=== PATIENT | female | born 1955 | race Caucasian/White ===

== ENCOUNTER 2018-02-20 15:15 | Inpatient (IN) ==
[~2018-02-20 15:15] MED LIST: HEPARIN/NACL 0.9% 2 UNITS/ML 1,000 ML IV ONE; HEPARIN/NACL 0.9% 2 UNITS/ML 500 ML IV ONE; LIDOCAINE 1% 20 ML VIAL ONE; MIDAZOLAM 2 MG/2 ML VIAL ONE; NITROGLYCERIN DRIP 50 MG/250 ML BOTTLE IV ONE; VERAPAMIL 5 MG/2 ML VIAL ONE; fentaNYL 100 MCG/2 ML VIAL ONE
[2018-02-20] MEDS ORDERED: MIDAZOLAM 2 MG/2 ML VIAL ONE ×3 (15:29→15:34)
[2018-02-20] MEDS ORDERED: diphenhydrAMINE 50 MG/1 ML VIAL ONE ×2 (15:33)
[2018-02-20] MEDS ORDERED: TICAGRELOR 90 MG TABLET ONE (15:51)
[2018-02-20] MEDS ORDERED: HEPARIN 5,000 UNIT/1 ML VIAL ONE (15:51)
[2018-02-20] MEDS ORDERED: ONDANSETRON 4 MG/2 ML VIAL IV PRN (15:57)
[2018-02-20] MEDS ORDERED: NITROGLYCERIN SL 0.4 MG TABLET SL PRN (15:57)
[2018-02-20] MEDS ORDERED: ZALEPLON 5 MG CAPSULE PO PRN (15:57)
[2018-02-20] MEDS ORDERED: ACETAMINOPHEN 325 MG TABLET PO PRN (15:57)
[2018-02-20] MEDS ORDERED: SODIUM CHLORIDE 0.45% 1,000 ML IV SCH (16:00)
[2018-02-20] MEDS ORDERED: PANTOPRAZOLE 40 MG TABLET PO SCH (16:00)
[2018-02-20] MEDS: NICOTINE 21 MG/24 HR PATCH TRANSDERM SCH (17:13)
[2018-02-20 18:04] LABS: Basophils # 0.1 10*3/uL (0.0-0.2); Basophils % 0.4 % (0.0-0.8); Eosinophils # 0.2 10*3/uL (0.0-0.87); Eosinophils % 1.3 % (0.00-10.9); Hematocrit 42.3 VOL% (35.7-47.0); Hemoglobin 14.6 GM/DL (12.0-16.0); Immature Granulocytes % 0.5 %; Immature Granulocytes Absolute 0.07 #; Lymphocytes # 2.7 10*3/uL (1.4-4.0); Lymphocytes % 20.2 % (21.3-54.2); Mean Corpuscular HGB Conc 34.5 GM/DL (32-36); Mean Corpuscular Hemoglobin 31 PG (27-34); Mean Platelet Volume 10.4 FL (9.6-12.0); Monocytes # 1.2 10*3/uL (0.11-0.8); Monocytes % 8.9 % (1.7-12.7); Neutrophils # 9.2 10*3/uL (1.4-7.4); Neutrophils % 68.7 % (38.7-73.9); Platelet Count 202 T/CUMM (130-400); Red Blood Count 4.65 MC/CUMM (3.8-5.5); Red Cell Distribution Width 13.9 % (9.3-17.3); White Blood Count 13.4 T/CUMM (4-12)
[2018-02-20] MEDS ORDERED: ALUM/MAG/SIMETH/LIDO VISC 1:1 30 ML BOTTLE PO ONE (18:17)
[2018-02-20 18:28] LABS: Calcium 8.7 MG/DL (8.5-10.1); Osmolality,Calculated 271.1 MOS/KG (273-304); Potassium 3.8 MMOL/L (3.5-5.1)
[2018-02-20] MEDS: ATORVASTATIN 40 MG TABLET PO SCH (20:49)
[2018-02-20] MEDS: LORazepam 1 MG TABLET PO PRN (20:50)
[2018-02-20] MEDS: TICAGRELOR 90 MG TABLET PO SCH (20:50)
[2018-02-20] MEDS: CARVEDILOL 3.125 MG TABLET PO SCH (20:50)
[2018-02-21 05:43] LABS: Basophils % 0.3 % (0.0-0.8); Eosinophils # 0.2 10*3/uL (0.0-0.87); Eosinophils % 1.7 % (0.00-10.9); Hematocrit 44.1 VOL% (35.7-47.0); Hemoglobin 14.9 GM/DL (12.0-16.0); Immature Granulocytes % 0.4 %; Immature Granulocytes Absolute 0.04 #; Lymphocytes # 1.9 10*3/uL (1.4-4.0); Lymphocytes % 17.8 % (21.3-54.2); Mean Corpuscular HGB Conc 33.8 GM/DL (32-36); Mean Corpuscular Hemoglobin 31 PG (27-34); Mean Corpuscular Volume 91.5 FL (87-102); Mean Platelet Volume 10.8 FL (9.6-12.0); Monocytes # 0.9 10*3/uL (0.11-0.8); Monocytes % 8.3 % (1.7-12.7); Neutrophils # 7.8 10*3/uL (1.4-7.4); Neutrophils % 71.5 % (38.7-73.9); Platelet Count 208 T/CUMM (130-400); Red Blood Count 4.82 MC/CUMM (3.8-5.5); Red Cell Distribution Width 13.9 % (9.3-17.3); White Blood Count 10.9 T/CUMM (4-12)
[2018-02-21 06:11] LABS: Calcium 8.4 MG/DL (8.5-10.1); Osmolality,Calculated 277.7 MOS/KG (273-304); Potassium 4.1 MMOL/L (3.5-5.1); Risk Ratio 4.91; VLDL CHOLESTEROL 40.6 MG/DL
[2018-02-21] MEDS: LISINOPRIL 2.5 MG TABLET PO SCH (09:45)
[2018-02-21] MEDS: CARVEDILOL 3.125 MG TABLET PO SCH ×2 (09:45→20:58)
[2018-02-21] MEDS: NICOTINE 21 MG/24 HR PATCH TRANSDERM SCH (09:46)
[2018-02-21] MEDS: TICAGRELOR 90 MG TABLET PO SCH ×2 (09:46→20:58)
[2018-02-21] MEDS: ASPIRIN EC 81 MG TABLET PO SCH (09:46)
[2018-02-21] MEDS: PANTOPRAZOLE 40 MG TABLET PO SCH ×2 (09:46→21:02)
[2018-02-21] MEDS: LORazepam 1 MG TABLET PO PRN (09:51)
[2018-02-21] MEDS ORDERED: ALUM/MAG/SIMETH/LIDO VISC 1:1 30 ML BOTTLE PO ONE (10:29)
[2018-02-21] MEDS: FAMOTIDINE 20 MG TABLET PO SCH ×2 (10:52→20:59)
[2018-02-21] MEDS: ATORVASTATIN 40 MG TABLET PO SCH (20:58)
[2018-02-22 04:26] LABS: Basophils # 0.1 10*3/uL (0.0-0.2); Basophils % 0.5 % (0.0-0.8); Eosinophils # 0.3 10*3/uL (0.0-0.87); Eosinophils % 3.2 % (0.00-10.9); Hemoglobin 14.6 GM/DL (12.0-16.0); Immature Granulocytes % 0.4 %; Immature Granulocytes Absolute 0.04 #; Lymphocytes % 31.1 % (21.3-54.2); Mean Corpuscular HGB Conc 34.8 GM/DL (32-36); Mean Corpuscular Hemoglobin 32 PG (27-34); Mean Corpuscular Volume 91.7 FL (87-102); Mean Platelet Volume 10.9 FL (9.6-12.0); Monocytes # 0.8 10*3/uL (0.11-0.8); Monocytes % 7.7 % (1.7-12.7); Neutrophils # 5.6 10*3/uL (1.4-7.4); Neutrophils % 57.1 % (38.7-73.9); Platelet Count 223 T/CUMM (130-400); Red Blood Count 4.58 MC/CUMM (3.8-5.5); Red Cell Distribution Width 13.9 % (9.3-17.3); White Blood Count 9.7 T/CUMM (4-12)
[2018-02-22 05:05] LABS: Calcium 8.9 MG/DL (8.5-10.1); Osmolality,Calculated 283.3 MOS/KG (273-304); Potassium 4.8 MMOL/L (3.5-5.1)
[2018-02-22 05:07] LABS: Calcium 9.1 MG/DL (8.5-10.1); Osmolality,Calculated 281.4 MOS/KG (273-304); Potassium 4.8 MMOL/L (3.5-5.1)
[2018-02-22] MEDS: LISINOPRIL 2.5 MG TABLET PO SCH (09:19)
[2018-02-22] MEDS: TICAGRELOR 90 MG TABLET PO SCH ×2 (09:19→21:54)
[2018-02-22] MEDS: FAMOTIDINE 20 MG TABLET PO SCH ×2 (09:19→21:52)
[2018-02-22] MEDS: ASPIRIN EC 81 MG TABLET PO SCH (09:19)
[2018-02-22] MEDS: PANTOPRAZOLE 40 MG TABLET PO SCH ×2 (09:19→21:54)
[2018-02-22] MEDS: CARVEDILOL 3.125 MG TABLET PO SCH (09:19)
[2018-02-22] MEDS: NICOTINE 21 MG/24 HR PATCH TRANSDERM SCH (09:19)
[2018-02-22] MEDS: RANOLAZINE 500 MG TABLET PO SCH (21:52)
[2018-02-22] MEDS: ATORVASTATIN 40 MG TABLET PO SCH (21:53)
[2018-02-22] MEDS: CARVEDILOL 6.25 MG TABLET PO SCH (21:53)
[2018-02-22] MEDS: LORazepam 1 MG TABLET PO PRN (21:54)
[2018-02-23 05:47] LABS: Basophils % 0.4 % (0.0-0.8); Eosinophils # 0.4 10*3/uL (0.0-0.87); Eosinophils % 3.9 % (0.00-10.9); Hemoglobin 13.4 GM/DL (12.0-16.0); Immature Granulocytes % 0.5 %; Immature Granulocytes Absolute 0.06 #; Lymphocytes # 3.1 10*3/uL (1.4-4.0); Lymphocytes % 27.2 % (21.3-54.2); Mean Corpuscular HGB Conc 34.4 GM/DL (32-36); Mean Corpuscular Hemoglobin 32 PG (27-34); Mean Corpuscular Volume 91.8 FL (87-102); Mean Platelet Volume 10.2 FL (9.6-12.0); Neutrophils # 6.7 10*3/uL (1.4-7.4); Platelet Count 229 T/CUMM (130-400); Red Blood Count 4.25 MC/CUMM (3.8-5.5); Red Cell Distribution Width 13.7 % (9.3-17.3); White Blood Count 11.3 T/CUMM (4-12)
[2018-02-23 06:04] LABS: Calcium 8.9 MG/DL (8.5-10.1); Osmolality,Calculated 279.5 MOS/KG (273-304); Potassium 4.3 MMOL/L (3.5-5.1)
[2018-02-23] MEDS: LISINOPRIL 2.5 MG TABLET PO SCH (09:57)
[2018-02-23] MEDS: NICOTINE 21 MG/24 HR PATCH TRANSDERM SCH (09:57)
[2018-02-23] MEDS: RANOLAZINE 500 MG TABLET PO SCH (09:58)
[2018-02-23] MEDS: FAMOTIDINE 20 MG TABLET PO SCH (09:58)
[2018-02-23] MEDS: ASPIRIN EC 81 MG TABLET PO SCH (09:58)
[2018-02-23] MEDS: TICAGRELOR 90 MG TABLET PO SCH (09:58)
[2018-02-23] MEDS: CARVEDILOL 6.25 MG TABLET PO SCH (09:58)
[2018-02-23] MEDS: PANTOPRAZOLE 40 MG TABLET PO SCH (09:58)
[2018-02-23 11:44] VITALS: BP 131/79
== END 2018-02-23 13:40 | disposition home or self-care (01) | DRG 251 ==
LOC: N.CL 15:15 → EDSTATUS 15:30 → N.CC 15:57 → N.TELES 02-21 15:49
PROVIDERS: ADMIT Internal Medicine Cardiovascular Disease; ATTEND Internal Medicine Cardiovascular Disease
PROC: CLCCHCL (ICD-10-PCS; 2018-02-20 15:45)

== ENCOUNTER 2018-10-25 04:08 | Inpatient (IN) ==
[2018-10-25] MEDS ORDERED: ROCURONIUM 100 MG/10 ML VIAL IV STA (04:26)
[2018-10-25] MEDS ORDERED: ETOMIDATE 20 MG/10 ML VIAL IV STA (04:26)
[2018-10-25] MEDS ORDERED: FUROSEMIDE 40 MG/4 ML VIAL IV STA (04:46)
[2018-10-25] MEDS ORDERED: hydrALAZINE 20 MG/1 ML VIAL IV STA (04:47)
[2018-10-25] MEDS ORDERED: PROPOFOL 1,000 MG/100 ML BOTTLE IV ONE (04:50)
[2018-10-25] MEDS ORDERED: LABETALOL 20 MG/4 ML SYRINGE IV STA (05:06)
[2018-10-25] MEDS ORDERED: ADENOSINE 6 MG/2 ML VIAL IV STA (05:09)
[2018-10-25] MEDS ORDERED: LABETALOL 20 MG/4 ML SYRINGE IV ONE (05:10)
[2018-10-25] MEDS ORDERED: hydrALAZINE 20 MG/1 ML VIAL ONE (05:10)
[2018-10-25] MEDS ORDERED: FUROSEMIDE 40 MG/4 ML VIAL ONE (05:11)
[2018-10-25] MEDS ORDERED: ADENOSINE 6 MG/2 ML VIAL ONE (05:15)
[2018-10-25] MEDS: PROPOFOL 1,000 MG/100 ML BOTTLE IV SCH ×3 (05:17→23:40)
[2018-10-25 05:22] LABS: Basophils # 0.1 10*3/uL (0.0-0.2); Basophils % 0.6 % (0.0-0.8); Eosinophils # 0.3 10*3/uL (0.0-0.87); Eosinophils % 1.3 % (0.00-10.9); Hematocrit 46.1 VOL% (35.7-47.0); Hemoglobin 14.4 GM/DL (12.0-16.0); Immature Granulocytes % 1.2 %; Immature Granulocytes Absolute 0.24 #; Lymphocytes # 3.2 10*3/uL (1.4-4.0); Lymphocytes % 15.6 % (21.3-54.2); Mean Corpuscular HGB Conc 31.2 GM/DL (32-36); Mean Corpuscular Hemoglobin 31 PG (27-34); Mean Corpuscular Volume 100.4 FL (87-102); Mean Platelet Volume 10.9 FL (9.6-12.0); Monocytes # 0.4 10*3/uL (0.11-0.8); Monocytes % 2.1 % (1.7-12.7); Neutrophils # 16.2 10*3/uL (1.4-7.4); Neutrophils % 79.2 % (38.7-73.9); Platelet Count 319 T/CUMM (130-400); Red Blood Count 4.59 MC/CUMM (3.8-5.5); Red Cell Distribution Width 13.5 % (9.3-17.3); White Blood Count 20.4 T/CUMM (4-12)
[2018-10-25] MEDS ORDERED: ETOMIDATE 20 MG/10 ML VIAL IV ONE (05:30)
[2018-10-25] MEDS ORDERED: ROCURONIUM 100 MG/10 ML VIAL IV ONE (05:31)
[2018-10-25] MEDS ORDERED: VECURONIUM 10 MG VIAL IV ONE (05:31)
[2018-10-25 05:39] LABS: Albumin 3.4 G/DL (3.4-5.0); Bilirubin,Total 0.9 MG/DL (0.2-1.0); Calcium 8.5 MG/DL (8.5-10.1); Osmolality,Calculated 299.1 MOS/KG (273-304); Potassium 5.6 MMOL/L (3.5-5.1); Total Protein 6.7 G/DL (6.4-8.3)
[2018-10-25 05:44] LABS: Anisocytosis Slight; Macrocytosis Slight; Platelet Estimate Normal
[2018-10-25 05:45] LABS: ABG Base Excess -12.1 MMOL/L (-2.5-2.5); ABG HCO3 14.9 MMOL/L (20-26); ABG Oxygen Saturation 81.8 % (95-100); ABG PCO2 53.7 MM HG (35-48); ABG PO2 63.3 MM HG (80-95); ABG TCO2 16.5 MMOL/L (23-27); Pt O2 Delivery Device Ventilator
[2018-10-25 05:49] LABS: ABG PH 7.135 (7.35-7.45)
[2018-10-25] MEDS ORDERED: MAGNESIUM SULF RIDER 2 GM in PREMIX 1 EACH IV PRN (06:15)
[2018-10-25] MEDS ORDERED: ONDANSETRON 4 MG/2 ML VIAL IV PRN (06:15)
[2018-10-25] MEDS ORDERED: ALBUTEROL 2.5 MG/3 ML NEB RESP TX PRN (06:15)
[2018-10-25] MEDS ORDERED: POTASSIUM CHLORIDE RIDER 10 MEQ in PREMIX 1 EACH IV PRN (06:15)
[2018-10-25] MEDS ORDERED: MAGNESIUM SULF RIDER 4 GM in PREMIX 1 EACH IV PRN (06:15)
[2018-10-25] MEDS ORDERED: DEXTROSE 50% 25 GM/50 ML SYRINGE IV PRN (06:26)
[2018-10-25] MEDS ORDERED: GLUCAGON 1 MG VIAL IM PRN (06:26)
[2018-10-25] MEDS ORDERED: ENOXAPARIN 40 MG/0.4 ML SYRINGE SUBCUT SCH (06:30)
[2018-10-25 08:49] LABS: Albumin 3.6 G/DL (3.4-5.0); Bilirubin,Total 0.6 MG/DL (0.2-1.0); Calcium 8.5 MG/DL (8.5-10.1); Osmolality,Calculated 284.3 MOS/KG (273-304); Total Protein 7.3 G/DL (6.4-8.3)
[2018-10-25 09:10] LABS: ABG Base Excess -8.9 MMOL/L (-2.5-2.5); ABG PCO2 48.5 MM HG (35-48); ABG PH 7.212 (7.35-7.45); ABG PO2 97.7 MM HG (80-95); ABG TCO2 20.5 MMOL/L (23-27)
[2018-10-25] MEDS ORDERED: SODIUM CHLORIDE 0.9% 1,000 ML IV ONE (09:25)
[2018-10-25] MEDS: PANTOPRAZOLE 40 MG VIAL IV SCH (09:48)
[2018-10-25] MEDS: SODIUM CHLORIDE 0.9% 1,000 ML IV SCH ×2 (09:52→18:48)
[2018-10-25] MEDS ORDERED: ISOSORBIDE MONONITRATE 30 MG TABLET PO SCH (10:30)
[2018-10-25] MEDS: CARVEDILOL 6.25 MG TABLET PO SCH ×2 (11:00→21:02)
[2018-10-25] MEDS: methylPREDNISolone SOD SUC 40 MG/1 ML VIAL IV SCH ×2 (11:00→18:59)
[2018-10-25] MEDS: ASPIRIN 325 MG TABLET PO SCH (11:00)
[2018-10-25] MEDS: PIPERACILLIN/TAZOBACTAM 3,375 MG in SODIUM CHLORIDE 0.9% 100 ML IV SCH ×2 (11:00→19:00)
[2018-10-25 12:49] LABS: Calcium 7.8 MG/DL (8.5-10.1); Osmolality,Calculated 285.3 MOS/KG (273-304)
[2018-10-25 12:51] LABS: Potassium 6.6 MMOL/L (3.5-5.1)
[2018-10-25] MEDS ORDERED: SODIUM POLYSTYRENE SULFATE 15 GM/60 ML BOTTLE PO ONE (13:30)
[2018-10-25] MEDS ORDERED: hydrALAZINE 25 MG TABLET PO SCH (15:00)
[2018-10-25] MEDS ORDERED: ENOXAPARIN 40 MG/0.4 ML SYRINGE SUBCUT ONE (16:22)
[2018-10-25] MEDS: INSULIN REGULAR 100 UNIT/ML SUBCUT SCH ×3 (17:36→20:48)
[2018-10-25] MEDS: FUROSEMIDE 40 MG/4 ML VIAL IV SCH (18:47)
[2018-10-25 20:06] LABS: Calcium 7.7 MG/DL (8.5-10.1); Potassium 4.4 MMOL/L (3.5-5.1)
[2018-10-25] MEDS ORDERED: MORPHINE 4 MG/1 ML VIAL IV PRN (21:14)
[2018-10-25] MEDS: MORPHINE 4 MG/1 ML VIAL IV PRN (21:16)
[2018-10-25] MEDS ORDERED: PHENYLEPHRINE DRIP 40 MG/250 ML PREMIX IV PRN (22:05)
[2018-10-26] MEDS: INSULIN REGULAR 100 UNIT/ML SUBCUT SCH ×6 (00:24→19:48)
[2018-10-26] MEDS: PIPERACILLIN/TAZOBACTAM 3,375 MG in SODIUM CHLORIDE 0.9% 100 ML IV SCH ×3 (02:34→17:52)
[2018-10-26] MEDS: methylPREDNISolone SOD SUC 40 MG/1 ML VIAL IV SCH ×3 (02:34→17:52)
[2018-10-26 02:45] LABS: ABG Base Excess -5.7 MMOL/L (-2.5-2.5); ABG HCO3 19.8 MMOL/L (20-26); ABG Oxygen Saturation 99.1 % (95-100); ABG PCO2 31.2 MM HG (35-48); ABG PH 7.378 (7.35-7.45); Allen Test Positive; Pt O2 Delivery Device Ventilator
[2018-10-26 04:04] LABS: Basophils % 0.2 % (0.0-0.8); Hematocrit 39.7 VOL% (35.7-47.0); Hemoglobin 12.7 GM/DL (12.0-16.0); Immature Granulocytes % 0.7 %; Immature Granulocytes Absolute 0.15 #; Lymphocytes # 1.5 10*3/uL (1.4-4.0); Lymphocytes % 7.5 % (21.3-54.2); Mean Corpuscular Hemoglobin 31 PG (27-34); Mean Corpuscular Volume 96.1 FL (87-102); Mean Platelet Volume 11.1 FL (9.6-12.0); Monocytes # 0.7 10*3/uL (0.11-0.8); Monocytes % 3.6 % (1.7-12.7); Neutrophils # 18.1 10*3/uL (1.4-7.4); Platelet Count 188 T/CUMM (130-400); Red Blood Count 4.13 MC/CUMM (3.8-5.5); Red Cell Distribution Width 13.8 % (9.3-17.3); White Blood Count 20.6 T/CUMM (4-12)
[2018-10-26] MEDS: SODIUM CHLORIDE 0.9% 1,000 ML IV SCH ×4 (04:18→14:15)
[2018-10-26 04:31] LABS: Calcium 7.9 MG/DL (8.5-10.1); Osmolality,Calculated 296.7 MOS/KG (273-304); Potassium 3.8 MMOL/L (3.5-5.1)
[2018-10-26 04:33] LABS: Lymphocytes 7 % (20-55); Platelet Estimate Adequate; Segmented Neutrophils 89 % (50-85); Total Cells Counted 100
[2018-10-26] MEDS: ENOXAPARIN 80 MG/0.8 ML SYRINGE SUBCUT SCH (04:33)
[2018-10-26 04:34] LABS: Hypochromasia 1+
[2018-10-26] MEDS: PROPOFOL 1,000 MG/100 ML BOTTLE IV SCH ×2 (05:10→05:24)
[2018-10-26] MEDS: PANTOPRAZOLE 40 MG VIAL IV SCH (05:54)
[2018-10-26] MEDS: FUROSEMIDE 40 MG/4 ML VIAL IV SCH ×2 (09:19→17:52)
[2018-10-26] MEDS: ASPIRIN 325 MG TABLET PO SCH (09:20)
[2018-10-26] MEDS: CARVEDILOL 6.25 MG TABLET PO SCH ×2 (09:20→20:47)
[2018-10-26 10:55] LABS: ABG Base Excess -5.3 MMOL/L (-2.5-2.5); ABG Oxygen Saturation 96.3 % (95-100); ABG PCO2 31.6 MM HG (35-48); ABG PH 7.382 (7.35-7.45); ABG PO2 86.9 MM HG (80-95); ABG TCO2 16.5 MMOL/L (23-27); Pt O2 Delivery Device Ventilator
[2018-10-26] MEDS: MORPHINE 4 MG/1 ML VIAL IV PRN (18:00)
[2018-10-26] MEDS: RANOLAZINE 500 MG TABLET PO SCH (20:47)
[2018-10-26] MEDS: ATORVASTATIN 40 MG TABLET PO SCH (20:47)
[2018-10-26] MEDS: TICAGRELOR 90 MG TABLET PO SCH (20:47)
[2018-10-27] MEDS: INSULIN REGULAR 100 UNIT/ML SUBCUT SCH ×6 (00:03→22:31)
[2018-10-27] MEDS: methylPREDNISolone SOD SUC 40 MG/1 ML VIAL IV SCH (03:12)
[2018-10-27] MEDS: PIPERACILLIN/TAZOBACTAM 3,375 MG in SODIUM CHLORIDE 0.9% 100 ML IV SCH ×3 (03:12→18:28)
[2018-10-27] MEDS: MORPHINE 4 MG/1 ML VIAL IV PRN (05:02)
[2018-10-27] MEDS: PROPOFOL 1,000 MG/100 ML BOTTLE IV SCH (05:03)
[2018-10-27] MEDS: ENOXAPARIN 80 MG/0.8 ML SYRINGE SUBCUT SCH (05:03)
[2018-10-27] MEDS: PANTOPRAZOLE 40 MG VIAL IV SCH (05:49)
[2018-10-27 06:03] LABS: Basophils % 0.1 % (0.0-0.8); Hematocrit 32.9 VOL% (35.7-47.0); Hemoglobin 10.9 GM/DL (12.0-16.0); Immature Granulocytes % 1.8 %; Immature Granulocytes Absolute 0.35 #; Lymphocytes # 1.3 10*3/uL (1.4-4.0); Lymphocytes % 6.5 % (21.3-54.2); Mean Corpuscular HGB Conc 33.1 GM/DL (32-36); Mean Corpuscular Hemoglobin 32 PG (27-34); Mean Corpuscular Volume 95.1 FL (87-102); Mean Platelet Volume 11.6 FL (9.6-12.0); Monocytes # 0.6 10*3/uL (0.11-0.8); Monocytes % 3.2 % (1.7-12.7); Neutrophils # 17.5 10*3/uL (1.4-7.4); Neutrophils % 88.4 % (38.7-73.9); Platelet Count 171 T/CUMM (130-400); Red Blood Count 3.46 MC/CUMM (3.8-5.5); Red Cell Distribution Width 13.9 % (9.3-17.3); White Blood Count 19.8 T/CUMM (4-12)
[2018-10-27 06:16] LABS: Calcium 7.5 MG/DL (8.5-10.1); Osmolality,Calculated 291.3 MOS/KG (273-304); Potassium 3.2 MMOL/L (3.5-5.1)
[2018-10-27] MEDS ORDERED: POTASSIUM CHLORIDE 20 MEQ TABLET PO ONE (08:46)
[2018-10-27] MEDS: RANOLAZINE 500 MG TABLET PO SCH ×2 (09:11→21:14)
[2018-10-27] MEDS: CARVEDILOL 6.25 MG TABLET PO SCH ×2 (09:11→21:15)
[2018-10-27] MEDS: TICAGRELOR 90 MG TABLET PO SCH ×2 (09:11→21:15)
[2018-10-27] MEDS: ASPIRIN 325 MG TABLET PO SCH (09:11)
[2018-10-27] MEDS: FUROSEMIDE 40 MG/4 ML VIAL IV SCH ×2 (09:11→16:28)
[2018-10-27] MEDS: ACETAMINOPHEN 325 MG TABLET PO PRN ×2 (09:53→18:09)
[2018-10-27] MEDS ORDERED: methylPREDNISolone SOD SUC 40 MG/1 ML VIAL IV SCH (15:00)
[2018-10-27] MEDS: ATORVASTATIN 40 MG TABLET PO SCH (21:15)
[2018-10-27] MEDS ORDERED: MAGNESIUM HYDROXIDE SUSP 30 ML UDCUP PO PRN (22:13)
[2018-10-28] MEDS: INSULIN REGULAR 100 UNIT/ML SUBCUT SCH ×5 (02:30→17:22)
[2018-10-28] MEDS: PIPERACILLIN/TAZOBACTAM 3,375 MG in SODIUM CHLORIDE 0.9% 100 ML IV SCH ×3 (02:42→18:31)
[2018-10-28 04:17] LABS: Basophils % 0.1 % (0.0-0.8); Eosinophils % 0.1 % (0.00-10.9); Hematocrit 35.1 VOL% (35.7-47.0); Hemoglobin 11.6 GM/DL (12.0-16.0); Immature Granulocytes % 0.7 %; Immature Granulocytes Absolute 0.13 #; Lymphocytes # 2.9 10*3/uL (1.4-4.0); Lymphocytes % 16.5 % (21.3-54.2); Mean Corpuscular Hemoglobin 31 PG (27-34); Mean Corpuscular Volume 94.1 FL (87-102); Mean Platelet Volume 11.3 FL (9.6-12.0); Monocytes # 0.9 10*3/uL (0.11-0.8); Monocytes % 5.1 % (1.7-12.7); Neutrophils # 13.7 10*3/uL (1.4-7.4); Neutrophils % 77.5 % (38.7-73.9); Platelet Count 192 T/CUMM (130-400); Red Blood Count 3.73 MC/CUMM (3.8-5.5); Red Cell Distribution Width 13.6 % (9.3-17.3); White Blood Count 17.7 T/CUMM (4-12)
[2018-10-28 04:33] LABS: Calcium 7.7 MG/DL (8.5-10.1); Osmolality,Calculated 286.4 MOS/KG (273-304); Potassium 3.3 MMOL/L (3.5-5.1)
[2018-10-28 04:34] LABS: Calcium 7.9 MG/DL (8.5-10.1); Osmolality,Calculated 283.5 MOS/KG (273-304); Potassium 3.2 MMOL/L (3.5-5.1)
[2018-10-28] MEDS: ASPIRIN 325 MG TABLET PO SCH (08:53)
[2018-10-28] MEDS: RANOLAZINE 500 MG TABLET PO SCH (08:53)
[2018-10-28] MEDS: CARVEDILOL 6.25 MG TABLET PO SCH (08:53)
[2018-10-28] MEDS: TICAGRELOR 90 MG TABLET PO SCH (08:53)
[2018-10-28] MEDS: FUROSEMIDE 40 MG/4 ML VIAL IV SCH ×2 (08:54→17:23)
[2018-10-28] MEDS ORDERED: POTASSIUM CHLORIDE 20 MEQ TABLET PO SCH (09:00)
[2018-10-28] MEDS ORDERED: PANTOPRAZOLE 40 MG TABLET PO SCH (09:00)
[2018-10-28] MEDS: ENOXAPARIN 80 MG/0.8 ML SYRINGE SUBCUT SCH (11:06)
[2018-10-28 11:31] LABS: Apearance,Urine CLEAR (Clear); Bilirubin,Urine Negative (Negative); Blood, Urine Large mg/dL (Negative); Glucose,Urine (UA) Negative (Negative); Ketones,Urine Negative (Negative); Mucus,Urine Occasional /LPF (Occasional); Nitrite,Urine Negative (Negative); Protein,Urine Negative; RBC,Urine 20 /HPF (0-4); Urine Color Straw (Yellow); Urine Specific Gravity 1.005 (1.001-1.035); Urine Urobilinogen < 2.0 EU/DL (0.2-1.0); WBC,Urine 3 /HPF (0-6)
[2018-10-28 18:25] VITALS: BP 115/72
== END 2018-10-28 18:40 | disposition home or self-care (01) | DRG 208 ==
LOC: EDBD → EDUNIT# → N.ED 04:08 → SUATTDRO 06:15 → N.EDINP 06:15 → N.ICU 06:45 → N.2E 10-27 17:25
PROVIDERS: ADMIT Internal Medicine; ATTEND Internal Medicine

== ENCOUNTER 2020-09-25 16:47 | Inpatient (IN) ==
[2020-09-25 20:10] LABS: Basophils # 0.1 10*3/uL (0.0-0.2); Basophils % 0.4 % (0.0-0.8); Eosinophils # 0.2 10*3/uL (0.0-0.87); Eosinophils % 1.5 % (0.00-10.9); Hematocrit 40.4 VOL% (35.7-47.0); Hemoglobin 13.8 GM/DL (12.0-16.0); Immature Granulocytes Absolute 0.12 #; Lymphocytes # 1.4 10*3/uL (1.4-4.0); Lymphocytes % 11.6 % (21.3-54.2); Mean Corpuscular HGB Conc 34.2 GM/DL (32-36); Mean Corpuscular Volume 97.8 FL (87-102); Mean Platelet Volume 9.7 FL (9.6-12.0); Monocytes % 8.6 % (1.7-12.7); Neutrophils % 76.9 % (38.7-73.9); Platelet Count 307 T/CUMM (130-400); Red Blood Count 4.13 MC/CUMM (3.8-5.5); Red Cell Distribution Width 14.6 % (9.3-17.3); White Blood Count 12.2 T/CUMM (4-12)
[2020-09-25 20:35] LABS: Albumin 2.9 G/DL (3.4-5.0); Calcium 8.6 MG/DL (8.5-10.1); Potassium 4.4 MMOL/L (3.5-5.1); Total Protein 6.8 G/DL (6.4-8.3)
[2020-09-25] MEDS ORDERED: DEXTROSE 50% 25 GM/50 ML VIAL IV PRN (23:50)
[2020-09-25] MEDS ORDERED: hydrALAZINE 20 MG/1 ML VIAL IV PRN (23:50)
[2020-09-25] MEDS ORDERED: ONDANSETRON 4 MG/2 ML VIAL IV PRN (23:50)
[2020-09-25] MEDS ORDERED: ALBUTEROL/IPRATROPIUM 3 ML NEB RESP TX PRN (23:50)
[2020-09-25] MEDS ORDERED: GLUCAGON 1 MG VIAL IM PRN (23:50)
[2020-09-25] MEDS ORDERED: DOCUSATE SODIUM 100 MG CAPSULE PO PRN (23:50)
[2020-09-26] MEDS: ALPRAZolam 0.25 MG TABLET PO PRN ×2 (00:39→22:30)
[2020-09-26 05:47] LABS: Basophils # 0.1 10*3/uL (0.0-0.2); Basophils % 0.5 % (0.0-0.8); Eosinophils # 0.2 10*3/uL (0.0-0.87); Eosinophils % 1.2 % (0.00-10.9); Hematocrit 41.4 VOL% (35.7-47.0); Hemoglobin 13.7 GM/DL (12.0-16.0); Immature Granulocytes Absolute 0.12 #; Lymphocytes # 1.9 10*3/uL (1.4-4.0); Lymphocytes % 15.5 % (21.3-54.2); Mean Corpuscular HGB Conc 33.1 GM/DL (32-36); Mean Corpuscular Volume 99.3 FL (87-102); Mean Platelet Volume 9.9 FL (9.6-12.0); Neutrophils % 74.8 % (38.7-73.9); Platelet Count 295 T/CUMM (130-400); Red Blood Count 4.17 MC/CUMM (3.8-5.5); Red Cell Distribution Width 14.5 % (9.3-17.3); White Blood Count 12.1 T/CUMM (4-12)
[2020-09-26 06:11] LABS: Albumin 2.9 G/DL (3.4-5.0); Bilirubin,Total 0.7 MG/DL (0.2-1.0); Osmolality,Calculated 276.1 MOS/KG (273-304); Potassium 4.7 MMOL/L (3.5-5.1); Total Protein 6.5 G/DL (6.4-8.3)
[2020-09-26] MEDS ORDERED: DIAZEPAM 5 MG TABLET PO ONE (07:50)
[2020-09-26 08:59] LABS: PT Patient Result 10.6 SECS (9.8-11.9)
[2020-09-26] MEDS: methylPREDNISolone SOD SUC 40 MG/1 ML VIAL IV SCH ×2 (10:38→21:17)
[2020-09-26] MEDS: SERTRALINE 25 MG TABLET PO SCH (10:39)
[2020-09-26] MEDS: SODIUM CHLORIDE 0.45% 1,000 ML IV SCH (21:20)
[2020-09-27] MEDS: methylPREDNISolone SOD SUC 40 MG/1 ML VIAL IV SCH ×3 (03:05→18:15)
[2020-09-27 07:27] LABS: Basophils % 0.2 % (0.0-0.8); Hematocrit 41.1 VOL% (35.7-47.0); Hemoglobin 13.6 GM/DL (12.0-16.0); Immature Granulocytes % 1.2 %; Immature Granulocytes Absolute 0.12 #; Lymphocytes # 0.8 10*3/uL (1.4-4.0); Lymphocytes % 8.2 % (21.3-54.2); Mean Corpuscular HGB Conc 33.1 GM/DL (32-36); Mean Corpuscular Volume 98.6 FL (87-102); Monocytes % 2.8 % (1.7-12.7); Neutrophils % 87.6 % (38.7-73.9); Platelet Count 278 T/CUMM (130-400); Red Blood Count 4.17 MC/CUMM (3.8-5.5); Red Cell Distribution Width 14.6 % (9.3-17.3); White Blood Count 9.6 T/CUMM (4-12)
[2020-09-27] MEDS: PANTOPRAZOLE 40 MG TABLET PO SCH (08:20)
[2020-09-27] MEDS: SERTRALINE 25 MG TABLET PO SCH (08:20)
[2020-09-27 08:41] LABS: Osmolality,Calculated 274.2 MOS/KG (273-304); Potassium 4.5 MMOL/L (3.5-5.1)
[2020-09-27] MEDS: AZITHROMYCIN INJ 500 MG in SODIUM CHLORIDE 0.9% 250 ML IV SCH (13:04)
[2020-09-27] MEDS: cefTRIAXone 1,000 MG in SYRINGE 1 EACH IV SCH (13:04)
[2020-09-27] MEDS: SODIUM CHLORIDE 0.45% 1,000 ML IV SCH (13:31)
[2020-09-27] MEDS: ENOXAPARIN 40 MG/0.4 ML SYRINGE SUBCUT SCH (14:51)
[2020-09-27] MEDS: RANOLAZINE 500 MG TABLET PO SCH (21:28)
[2020-09-27] MEDS: ALPRAZolam 0.25 MG TABLET PO PRN (21:40)
[2020-09-28] MEDS: methylPREDNISolone SOD SUC 40 MG/1 ML VIAL IV SCH ×3 (01:59→18:31)
[2020-09-28 06:35] LABS: Risk Ratio 3.82; VLDL CHOLESTEROL 20.4 MG/DL
[2020-09-28] MEDS ORDERED: SPIRONOLACTONE 25 MG TABLET PO SCH (09:00)
[2020-09-28] MEDS ORDERED: INFLUENZA VIRUS VACCINE 0.5 ML SYRINGE IM ONE (09:00)
[2020-09-28] MEDS: carvediloL 12.5 MG TABLET PO SCH (10:14)
[2020-09-28] MEDS: RANOLAZINE 500 MG TABLET PO SCH ×2 (10:14→22:17)
[2020-09-28] MEDS: PANTOPRAZOLE 40 MG TABLET PO SCH (10:14)
[2020-09-28] MEDS: LOSARTAN 25 MG TABLET PO SCH (10:15)
[2020-09-28] MEDS: SERTRALINE 25 MG TABLET PO SCH (10:15)
[2020-09-28] MEDS: FUROSEMIDE 40 MG TABLET PO SCH (10:16)
[2020-09-28] MEDS: cefTRIAXone 1,000 MG in SYRINGE 1 EACH IV SCH (14:15)
[2020-09-28] MEDS: AZITHROMYCIN INJ 500 MG in SODIUM CHLORIDE 0.9% 250 ML IV SCH (14:16)
[2020-09-28] MEDS: ENOXAPARIN 40 MG/0.4 ML SYRINGE SUBCUT SCH (14:41)
[2020-09-28] MEDS: SODIUM CHLORIDE 0.45% 1,000 ML IV SCH (18:13)
[2020-09-28] MEDS: MORPHINE 4 MG/1 ML VIAL IV PRN (21:03)
[2020-09-28] MEDS: ALPRAZolam 0.25 MG TABLET PO PRN ×2 (22:16→22:17)
[2020-09-28] MEDS: ATORVASTATIN 20 MG TABLET PO SCH (22:17)
[2020-09-29] MEDS: methylPREDNISolone SOD SUC 40 MG/1 ML VIAL IV SCH ×3 (02:17→18:29)
[2020-09-29 05:25] LABS: Basophils % 0.1 % (0.0-0.8); Hematocrit 44.1 VOL% (35.7-47.0); Hemoglobin 14.2 GM/DL (12.0-16.0); Immature Granulocytes Absolute 0.16 #; Lymphocytes % 6.6 % (21.3-54.2); Mean Corpuscular HGB Conc 32.2 GM/DL (32-36); Mean Corpuscular Volume 102.1 FL (87-102); Mean Platelet Volume 9.8 FL (9.6-12.0); Monocytes % 4.6 % (1.7-12.7); Neutrophils % 87.7 % (38.7-73.9); Platelet Count 314 T/CUMM (130-400); Red Blood Count 4.32 MC/CUMM (3.8-5.5); Red Cell Distribution Width 14.4 % (9.3-17.3); White Blood Count 15.3 T/CUMM (4-12)
[2020-09-29 06:10] LABS: Calcium 9.1 MG/DL (8.5-10.1); Osmolality,Calculated 277.1 MOS/KG (273-304); Potassium 5.1 MMOL/L (3.5-5.1)
[2020-09-29] MEDS ORDERED: PROMETHAZINE 25 MG/1 ML VIAL IM ONE (07:00)
[2020-09-29] MEDS ORDERED: MEPERIDINE 50 MG/1 ML VIAL IV ONE (07:00)
[2020-09-29] MEDS ORDERED: LIDOCAINE 2% 20 ML VIAL RESP TX ONE (07:30)
[2020-09-29] MEDS ORDERED: LIDOCAINE 2% VISCOUS 100 ML BOTTLE SWISH/SPIT ONE (07:30)
[2020-09-29] MEDS ORDERED: MIDAZOLAM 2 MG/2 ML VIAL IV ONE (07:30)
[2020-09-29] MEDS ORDERED: LIDOCAINE 1% 20 ML VIAL MISC INJ ONE (07:30)
[2020-09-29] MEDS: MORPHINE 4 MG/1 ML VIAL IV PRN (09:39)
[2020-09-29] MEDS: PANTOPRAZOLE 40 MG TABLET PO SCH (11:26)
[2020-09-29] MEDS: SERTRALINE 25 MG TABLET PO SCH (11:26)
[2020-09-29] MEDS: RANOLAZINE 500 MG TABLET PO SCH ×2 (11:38→21:31)
[2020-09-29] MEDS: LOSARTAN 25 MG TABLET PO SCH (11:39)
[2020-09-29] MEDS: carvediloL 12.5 MG TABLET PO SCH (11:39)
[2020-09-29] MEDS: FUROSEMIDE 40 MG TABLET PO SCH (11:39)
[2020-09-29] MEDS: cefTRIAXone 1,000 MG in SYRINGE 1 EACH IV SCH (12:39)
[2020-09-29] MEDS: AZITHROMYCIN INJ 500 MG in SODIUM CHLORIDE 0.9% 250 ML IV SCH (12:43)
[2020-09-29] MEDS: ENOXAPARIN 40 MG/0.4 ML SYRINGE SUBCUT SCH (14:24)
[2020-09-29] MEDS ORDERED: fentaNYL 25 MCG/HR PATCH TRANSDERM SCH (18:04)
[2020-09-29] MEDS: ALPRAZolam 0.25 MG TABLET PO PRN (21:31)
[2020-09-29] MEDS: ATORVASTATIN 20 MG TABLET PO SCH (21:32)
[2020-09-30] MEDS: SODIUM CHLORIDE 0.45% 1,000 ML IV SCH ×2 (00:52→08:41)
[2020-09-30] MEDS: methylPREDNISolone SOD SUC 40 MG/1 ML VIAL IV SCH ×4 (02:50→18:43)
[2020-09-30 05:08] LABS: Basophils % 0.2 % (0.0-0.8); Hematocrit 40.2 VOL% (35.7-47.0); Hemoglobin 13.1 GM/DL (12.0-16.0); Immature Granulocytes Absolute 0.12 #; Lymphocytes # 0.8 10*3/uL (1.4-4.0); Mean Corpuscular HGB Conc 32.6 GM/DL (32-36); Mean Corpuscular Volume 100.2 FL (87-102); Mean Platelet Volume 9.9 FL (9.6-12.0); Monocytes % 5.8 % (1.7-12.7); Platelet Count 266 T/CUMM (130-400); Red Blood Count 4.01 MC/CUMM (3.8-5.5); Red Cell Distribution Width 14.5 % (9.3-17.3); White Blood Count 11.7 T/CUMM (4-12)
[2020-09-30 05:26] LABS: Calcium 8.8 MG/DL (8.5-10.1); Potassium 4.5 MMOL/L (3.5-5.1)
[2020-09-30] MEDS: SERTRALINE 25 MG TABLET PO SCH (08:38)
[2020-09-30] MEDS: carvediloL 12.5 MG TABLET PO SCH (08:38)
[2020-09-30] MEDS: LOSARTAN 25 MG TABLET PO SCH (08:38)
[2020-09-30] MEDS: PANTOPRAZOLE 40 MG TABLET PO SCH (08:38)
[2020-09-30] MEDS: RANOLAZINE 500 MG TABLET PO SCH ×2 (08:38→21:37)
[2020-09-30] MEDS: FUROSEMIDE 40 MG TABLET PO SCH (08:38)
[2020-09-30] MEDS: CITALOPRAM 20 MG TABLET PO SCH (10:30)
[2020-09-30] MEDS: cefTRIAXone 1,000 MG in SYRINGE 1 EACH IV SCH (13:03)
[2020-09-30] MEDS: AZITHROMYCIN INJ 500 MG in SODIUM CHLORIDE 0.9% 250 ML IV SCH (13:03)
[2020-09-30] MEDS: ENOXAPARIN 40 MG/0.4 ML SYRINGE SUBCUT SCH (14:30)
[2020-09-30] MEDS: ALPRAZolam 0.25 MG TABLET PO PRN (21:37)
[2020-09-30] MEDS: ATORVASTATIN 20 MG TABLET PO SCH (21:37)
[2020-09-30] MEDS: MORPHINE 4 MG/1 ML VIAL IV PRN (23:59)
[2020-10-01] MEDS: methylPREDNISolone SOD SUC 40 MG/1 ML VIAL IV SCH ×2 (03:51→09:12)
[2020-10-01 05:41] LABS: Basophils % 0.1 % (0.0-0.8); Hematocrit 38.7 VOL% (35.7-47.0); Hemoglobin 12.7 GM/DL (12.0-16.0); Immature Granulocytes % 0.9 %; Immature Granulocytes Absolute 0.11 #; Lymphocytes # 0.9 10*3/uL (1.4-4.0); Lymphocytes % 7.4 % (21.3-54.2); Mean Corpuscular HGB Conc 32.8 GM/DL (32-36); Mean Corpuscular Volume 100.5 FL (87-102); Monocytes % 5.5 % (1.7-12.7); Neutrophils % 86.1 % (38.7-73.9); Platelet Count 264 T/CUMM (130-400); Red Blood Count 3.85 MC/CUMM (3.8-5.5); Red Cell Distribution Width 14.2 % (9.3-17.3); White Blood Count 12.5 T/CUMM (4-12)
[2020-10-01 06:00] LABS: Calcium 8.5 MG/DL (8.5-10.1); Osmolality,Calculated 278.1 MOS/KG (273-304); Potassium 3.8 MMOL/L (3.5-5.1)
[2020-10-01] MEDS: PANTOPRAZOLE 40 MG TABLET PO SCH (08:15)
[2020-10-01] MEDS: SERTRALINE 25 MG TABLET PO SCH (08:15)
[2020-10-01] MEDS: carvediloL 12.5 MG TABLET PO SCH (08:15)
[2020-10-01] MEDS: CITALOPRAM 20 MG TABLET PO SCH (08:15)
[2020-10-01] MEDS: FUROSEMIDE 40 MG TABLET PO SCH (08:15)
[2020-10-01] MEDS: LOSARTAN 25 MG TABLET PO SCH (08:15)
[2020-10-01] MEDS: MORPHINE 4 MG/1 ML VIAL IV PRN ×2 (08:22→13:51)
[2020-10-01] MEDS: RANOLAZINE 500 MG TABLET PO SCH ×2 (08:42→21:24)
[2020-10-01] MEDS ORDERED: fentaNYL 50 MCG/HR PATCH TRANSDERM SCH (09:00)
[2020-10-01] MEDS ORDERED: DEXAMETHASONE 10 MG/1 ML VIAL IV ONE (09:29)
[2020-10-01] MEDS ORDERED: PALONOSETRON 0.25 MG/5 ML VIAL IV ONE (09:29)
[2020-10-01] MEDS ORDERED: CARBOplatin 500 MG in SODIUM CHLORIDE 0.9% 250 ML IV ONE (11:30)
[2020-10-01] MEDS ORDERED: ETOPOSIDE 160 MG in SODIUM CHLORIDE 0.9% 500 ML IV SCH (11:30)
[2020-10-01] MEDS: SODIUM CHLORIDE 0.45% 1,000 ML IV SCH (13:10)
[2020-10-01] MEDS ORDERED: AZITHROMYCIN INJ 500 MG in SODIUM CHLORIDE 0.9% 250 ML IV SCH (15:00)
[2020-10-01] MEDS: AZITHROMYCIN INJ 500 MG in SODIUM CHLORIDE 0.9% 250 ML IV SCH (15:07)
[2020-10-01] MEDS: ENOXAPARIN 40 MG/0.4 ML SYRINGE SUBCUT SCH ×2 (15:16→16:11)
[2020-10-01] MEDS: cefTRIAXone 1,000 MG in SYRINGE 1 EACH IV SCH (16:02)
[2020-10-01] MEDS: ALPRAZolam 0.25 MG TABLET PO PRN (21:24)
[2020-10-02] MEDS: CITALOPRAM 20 MG TABLET PO SCH (10:33)
[2020-10-02] MEDS: carvediloL 12.5 MG TABLET PO SCH (10:33)
[2020-10-02] MEDS: SERTRALINE 25 MG TABLET PO SCH (10:33)
[2020-10-02] MEDS: RANOLAZINE 500 MG TABLET PO SCH ×2 (10:33→21:21)
[2020-10-02] MEDS: PANTOPRAZOLE 40 MG TABLET PO SCH (10:33)
[2020-10-02] MEDS: LOSARTAN 25 MG TABLET PO SCH (10:33)
[2020-10-02] MEDS: ETOPOSIDE 160 MG in SODIUM CHLORIDE 0.9% 500 ML IV SCH (11:16)
[2020-10-02] MEDS: ENOXAPARIN 40 MG/0.4 ML SYRINGE SUBCUT SCH (15:06)
[2020-10-02] MEDS: cefTRIAXone 1,000 MG in SYRINGE 1 EACH IV SCH (15:06)
[2020-10-02] MEDS: MORPHINE 4 MG/1 ML VIAL IV PRN (23:53)
[2020-10-03 05:36] LABS: Basophils % 0.1 % (0.0-0.8); Eosinophils # 0.1 10*3/uL (0.0-0.87); Eosinophils % 0.6 % (0.00-10.9); Hematocrit 39.6 VOL% (35.7-47.0); Hemoglobin 12.8 GM/DL (12.0-16.0); Immature Granulocytes % 0.5 %; Immature Granulocytes Absolute 0.05 #; Lymphocytes # 1.1 10*3/uL (1.4-4.0); Lymphocytes % 10.4 % (21.3-54.2); Mean Corpuscular HGB Conc 32.3 GM/DL (32-36); Mean Corpuscular Volume 102.3 FL (87-102); Mean Platelet Volume 10.1 FL (9.6-12.0); Neutrophils % 84.4 % (38.7-73.9); Platelet Count 232 T/CUMM (130-400); Red Blood Count 3.87 MC/CUMM (3.8-5.5); Red Cell Distribution Width 14.2 % (9.3-17.3); White Blood Count 10.9 T/CUMM (4-12)
[2020-10-03 05:59] LABS: Albumin 2.9 G/DL (3.4-5.0); Bilirubin,Total 0.4 MG/DL (0.2-1.0); Calcium 7.9 MG/DL (8.5-10.1); Osmolality,Calculated 281.7 MOS/KG (273-304); Potassium 4.1 MMOL/L (3.5-5.1)
[2020-10-03] MEDS: MORPHINE 4 MG/1 ML VIAL IV PRN (08:04)
[2020-10-03] MEDS: carvediloL 12.5 MG TABLET PO SCH (09:23)
[2020-10-03] MEDS: CITALOPRAM 20 MG TABLET PO SCH (09:23)
[2020-10-03] MEDS: SERTRALINE 25 MG TABLET PO SCH (09:23)
[2020-10-03] MEDS: LOSARTAN 25 MG TABLET PO SCH (09:23)
[2020-10-03] MEDS: RANOLAZINE 500 MG TABLET PO SCH (09:23)
[2020-10-03] MEDS: PANTOPRAZOLE 40 MG TABLET PO SCH (09:24)
[2020-10-03] MEDS: ETOPOSIDE 160 MG in SODIUM CHLORIDE 0.9% 500 ML IV SCH (09:57)
[2020-10-03 11:57] VITALS: BP 117/80
== END 2020-10-03 13:08 | disposition home or self-care (01) | DRG 180 ==
LOC: N.ED 16:47 → N.EDINP 16:47 → SUATTDRO 21:11 → N.EDINP 21:55 → N.3E 22:12 → N.4E 09-30 16:39
PROVIDERS: ADMIT Internal Medicine; ATTEND Internal Medicine Geriatric Medicine
PROC: BRONCHB (2020-09-29 07:35)

== ENCOUNTER 2020-10-12 21:49 | Inpatient (IN) ==
[2020-10-12] MEDS ORDERED: FUROSEMIDE 100 MG/10 ML VIAL IV STA (22:29)
[2020-10-12] MEDS ORDERED: PIPERACILLIN/TAZOBACTAM 3,375 MG in SODIUM CHLORIDE 0.9% 100 ML IV STA ×2 (22:29→22:32)
[2020-10-12] MEDS ORDERED: PIPERACILLIN/TAZOBACTAM 3,375 MG VIAL IV ONE (22:30)
[2020-10-12] MEDS ORDERED: FUROSEMIDE 40 MG/4 ML VIAL ONE (22:30)
[2020-10-12 22:40] LABS: ABG Base Excess -0.7 MMOL/L (-2.5-2.5); ABG HCO3 19.9 MMOL/L (20-26); ABG Oxygen Saturation 94.4 % (95-100); ABG PH 7.575 (7.35-7.45); ABG TCO2 20.6 MMOL/L (23-27); Allen Test Positive
[2020-10-12 22:40] LABS: Basophils % 0.7 % (0.0-0.8); Eosinophils % 0.2 % (0.00-10.9); Hematocrit 32.1 VOL% (35.7-47.0); Hemoglobin 10.7 GM/DL (12.0-16.0); Immature Granulocytes % 7.9 %; Immature Granulocytes Absolute 0.46 #; Lymphocytes # 0.7 10*3/uL (1.4-4.0); Lymphocytes % 11.5 % (21.3-54.2); Mean Corpuscular HGB Conc 33.3 GM/DL (32-36); Mean Corpuscular Volume 97.9 FL (87-102); Mean Platelet Volume 11.1 FL (9.6-12.0); Monocytes % 18.8 % (1.7-12.7); NRBC # 0.06 10*3/uL; Neutrophils % 60.9 % (38.7-73.9); Red Blood Count 3.28 MC/CUMM (3.8-5.5); Red Cell Distribution Width 14.1 % (9.3-17.3); White Blood Count 5.9 T/CUMM (4-12)
[2020-10-12 22:52] LABS: INR 1.4; PT Patient Result 14.5 SECS (9.8-11.9)
[2020-10-12 22:55] LABS: Albumin 2.3 G/DL (3.4-5.0); Bilirubin,Total 0.7 MG/DL (0.2-1.0); Osmolality,Calculated 275.8 MOS/KG (273-304); Potassium 4.3 MMOL/L (3.5-5.1); Total Protein 5.7 G/DL (6.4-8.3)
[2020-10-12 22:57] LABS: Lactic Acid 5.4 MMOL/L (0.4-2.0)
[2020-10-12 23:07] LABS: Platelet Count 31 T/CUMM (130-400)
[2020-10-12] MEDS ORDERED: DEXAMETHASONE 4 MG/1 ML VIAL IV STA (23:11)
[2020-10-12 23:37] LABS: Band Neutrophils 3 % (0-10); Lymphocytes 27 % (20-55); Segmented Neutrophils 70 % (50-85); Total Cells Counted 100
[2020-10-12 23:38] LABS: Atypical Lymphocytes 2+; Reactive Lymphocytes 2+
[2020-10-12 23:39] LABS: Toxic Granulation 2+
[2020-10-12 23:40] LABS: Dohle Bodies 2+; Giant Platelets Few; Platelet Estimate Decreased
[2020-10-13 00:06] LABS: Ferritin 4096.8 ng/ml (8-252)
[2020-10-13] MEDS ORDERED: GLUCAGON 1 MG VIAL IM PRN (01:15)
[2020-10-13] MEDS ORDERED: DEXTROSE 50% 25 GM/50 ML VIAL IV PRN (01:15)
[2020-10-13] MEDS ORDERED: ONDANSETRON 4 MG/2 ML VIAL IV PRN (01:15)
[2020-10-13] MEDS ORDERED: cefTRIAXone 1,000 MG in SYRINGE 1 EACH IV SCH (02:00)
[2020-10-13] MEDS: carvediloL 12.5 MG TABLET PO SCH ×2 (04:08→09:37)
[2020-10-13] MEDS: ALBUTEROL INHALER 18 GM INH SCH ×3 (04:16→11:35)
[2020-10-13 05:54] LABS: Basophils % 0.7 % (0.0-0.8); Hematocrit 29.4 VOL% (35.7-47.0); Immature Granulocytes % 4.6 %; Immature Granulocytes Absolute 0.26 #; Lymphocytes # 0.6 10*3/uL (1.4-4.0); Lymphocytes % 10.7 % (21.3-54.2); Mean Corpuscular Volume 97.7 FL (87-102); Mean Platelet Volume 11.9 FL (9.6-12.0); Monocytes % 12.5 % (1.7-12.7); NRBC # 0.02 10*3/uL; Neutrophils % 71.5 % (38.7-73.9); Red Blood Count 3.01 MC/CUMM (3.8-5.5); Red Cell Distribution Width 14.2 % (9.3-17.3); White Blood Count 5.6 T/CUMM (4-12)
[2020-10-13 05:56] LABS: Platelet Count 23 T/CUMM (130-400)
[2020-10-13 06:01] LABS: INR 1.2; PT Patient Result 13.2 SECS (9.8-11.9); Partial Thromboplastin Time 36.4 SECS (23.9-33.8)
[2020-10-13] MEDS ORDERED: SODIUM CHLORIDE 0.9% 1,000 ML IV PRN (06:16)
[2020-10-13 06:21] LABS: Band Neutrophils 5 % (0-10); Lymphocytes 16 % (20-55); Nucleated Red Blood Cells 2 (0-5); Platelet Estimate Decreased; Segmented Neutrophils 68 % (50-85); Total Cells Counted 100
[2020-10-13 06:22] LABS: Hypochromasia 1+; Microcytosis 1+
[2020-10-13 06:28] LABS: Troponin I 1.18 NG/ML (0.00-0.045)
[2020-10-13 06:34] LABS: Bilirubin,Total 0.7 MG/DL (0.2-1.0); Calcium 8.1 MG/DL (8.5-10.1); Ferritin 4304.8 ng/ml (8-252); Osmolality,Calculated 272.1 MOS/KG (273-304); Potassium 4.1 MMOL/L (3.5-5.1); Total Protein 5.9 G/DL (6.4-8.3)
[2020-10-13] MEDS ORDERED: fentaNYL 50 MCG/HR PATCH TRANSDERM SCH (09:00)
[2020-10-13] MEDS ORDERED: RANOLAZINE 500 MG TABLET PO SCH (09:00)
[2020-10-13] MEDS ORDERED: ASCORBIC ACID 500 MG TABLET PO SCH (09:00)
[2020-10-13] MEDS ORDERED: ZINC SULFATE 220 MG CAPSULE PO SCH (09:00)
[2020-10-13] MEDS ORDERED: DEXAMETHASONE 4 MG/1 ML VIAL IV SCH (09:00)
[2020-10-13] MEDS ORDERED: PANTOPRAZOLE 40 MG TABLET PO SCH (09:00)
[2020-10-13] MEDS ORDERED: SODIUM CHLORIDE 0.9% 500 ML IV ONE (09:26)
[2020-10-13] MEDS ORDERED: AZITHROMYCIN INJ 500 MG in SODIUM CHLORIDE 0.9% 250 ML IV SCH (09:30)
[2020-10-13 09:43] LABS: CKMB % 10.5 %
[2020-10-13 09:50] LABS: Troponin I 2.38 NG/ML (0.00-0.045)
[2020-10-13] MEDS ORDERED: SUCRALFATE 1 GM TABLET PO SCH (11:30)
[2020-10-13] MEDS ORDERED: DOPamine 800 MG/250 ML PREMIX IV ONE ×2 (13:17→13:50)
[2020-10-13] MEDS ORDERED: NOREPINEPHRINE 4 MG/4 ML VIAL IV ONE (13:41)
[2020-10-13] MEDS ORDERED: EPINEPHrine 1 MG/ML VIAL ONE (13:47)
[2020-10-13] MEDS ORDERED: SODIUM BICARBONATE 50 MEQ/50 ML SYRINGE IV ONE (13:50)
[2020-10-13] MEDS ORDERED: EPINEPHrine 1 MG/10 ML SYRINGE IV ONE (13:50)
[2020-10-13] MEDS ORDERED: CALCIUM CHLORIDE 1,000 MG/10 ML SYRINGE IV ONE (13:50)
[2020-10-13] MEDS ORDERED: ATROPINE 1 MG/10 ML SYRINGE IV ONE (13:50)
[2020-10-13] MEDS ORDERED: ETOMIDATE 20 MG/10 ML VIAL IV ONE (13:58)
[2020-10-13] MEDS ORDERED: ROCURONIUM 100 MG/10 ML VIAL IV ONE (13:58)
[2020-10-13] MEDS ORDERED: MEROPENEM 500 MG in SODIUM CHLORIDE 0.9% 100 ML IV SCH (14:00)
[2020-10-13 16:38] VITALS: BP 68/58
== END 2020-10-13 13:51 | disposition expired | DRG 177 ==
LOC: EDUNIT# → EDBD → N.ED 21:49 → N.EDINP 10-13 01:15 → N.2E 10-13 02:59 → N.CC 10-13 14:06
PROVIDERS: ADMIT Internal Medicine; ATTEND Internal Medicine